=== PATIENT | female | born 1980 | race Caucasian/White ===

== ENCOUNTER 2025-01-04 06:46 | Emergency (ER) | payer OTHER ==
[~2025-01-04] VITALS: Ht 170.2 cm; Wt 99.8 kg
[2025-01-04] MEDS ORDERED: ONDANSETRON HCL/PF 4 MG/2 ML VIAL ONE ×2 (07:06→10:36)
[2025-01-04] MEDS: IV NS 0.9% 1,000 ML BAG IV ONE (07:06)
[2025-01-04] MEDS: ONDANSETRON HCL/PF 4 MG/2 ML VIAL IVP ONE (07:06)
[2025-01-04] MEDS: KETOROLAC TROMETHAMINE 15 MG/ML VIAL IV ONE ×2 (07:30→10:43)
[2025-01-04] MEDS: FENTANYL PF 100MCG/2ML AMPUL IV ONE ×2 (07:30→10:43)
[2025-01-04] MEDS ORDERED: KETOROLAC TROMETHAMINE 15 MG/ML VIAL ONE ×2 (07:32→10:36)
[2025-01-04] MEDS ORDERED: FENTANYL PF 100MCG/2ML AMPUL ONE ×2 (07:33→10:36)
[2025-01-04 07:56] LABS: PLATELET COUNT (AUTO) 303 K/uL (150-450); RED BLOOD CELL COUNT(AUTO) 4.46 MIL/uL (4.0-5.2); RED CELL DISTRIBUTION WIDTH 14.3 % (11.5-15.0); WHITE BLOOD COUNT (AUTO) 17.7 K/uL (4.3-11.0)
[2025-01-04 08:07] LABS: CALCIUM, SERUM 8.9 mg/dL (8.5-10.1); CREATININE 1.1 mg/dL (0.6-1.3); SODIUM SERUM 139.0 mmol/L (136-145); UREA NITROGEN, BLOOD 18.0 mg/dL (7-18)
[2025-01-04 08:12] LABS: ASPARTATE AMINOTRANSFERASE 13.0 U/L (15-37); TOTAL PROTEIN, SERUM 7.7 g/dL (6.4-8.2)
[2025-01-04 08:59] LABS: PREGNANCY TEST URINE QUAL NEGATIVE (NEGATIVE)
[2025-01-04 09:00] LABS: APPEARANCE,URINE CLEAR (CLEAR); BLOOD, URINE 3+ Ery/uL (NEGATIVE); LEUKOCYTE ESTERASE ,URINE NEGATIVE (NEGATIVE); NITRITE, URINE NEGATIVE (NEGATIVE); UGLUCOSE NEGATIVE (NEGATIVE)
[2025-01-04 09:29] LABS: ADD URINE CULTURE YES; SQUAMOUS EPITHELIAL CELL,UR Few /HPF (None Seen)
[2025-01-04] MEDS: CEFTRIAXONE 1 G in IV D5W 50 ML IV ONE (10:00)
[2025-01-04] MEDS ORDERED: ONDA4TAB5 PO (10:02)
[2025-01-04] MEDS ORDERED: CEPH-570 PO (10:02)
[2025-01-04] MEDS ORDERED: IBUP-1955 PO (10:02)
[2025-01-04] MEDS ORDERED: HYDR-4303 PO (10:02)
[2025-01-04] MEDS ORDERED: TAMS-12 PO (10:02)
[2025-01-04] MEDS ORDERED: CEFTRIAXONE 1GM BAG (ER ONLY) 50 ML IV ONE (10:24)
[2025-01-04] MEDS: ONDANSETRON HCL/PF 4 MG/2 ML VIAL IV ONE (10:43)
[2025-01-04 11:30] VITALS: BP 154/81; TEMP 98.3; O2SAT 99
== END 2025-01-04 11:30 | disposition home or self-care (01) ==
LOC: ER 06:49
DX: N13.2 Hydronephrosis with renal and ureteral calculous obstruction (principal); R30.0 Dysuria; R11.2 Nausea with vomiting, unspecified; Z90.49 Acquired absence of other specified parts of digestive tract; Z79.899 Other long term (current) drug therapy
CPT/HCPCS: 99285; 74176; 96365; 96375; 96361; 96376; 85025; 80048; 87086; 83690; 80076; 84703; 81001; 36415; J1885 ×2; J3010 ×2; J2405 ×2; J7030; J0696

== ENCOUNTER 2025-01-05 14:10 | Inpatient (IN) | payer OTHER ==
[~2025-01-05] VITALS: Ht 165.1 cm; Wt 103.9 kg
[2025-01-05] MEDS: IV NS 0.9% 1,000 ML BAG IV ONE (11:35)
[~2025-01-05 14:10] MED LIST: CEPH-570 PO; HYDR-4303 PO; IBUP-1955 PO; ONDA4TAB5 PO; TAMS-12 PO
[2025-01-05] MEDS ORDERED: ONDANSETRON HCL/PF 4 MG/2 ML VIAL ONE (14:27)
[2025-01-05] MEDS: ONDANSETRON HCL/PF 4 MG/2 ML VIAL IVP ONE (14:40)
[2025-01-05] MEDS: KETOROLAC TROMETHAMINE INJ 30 MG/ML VIAL IM ONE (15:00)
[2025-01-05 15:14] LABS: ASPARTATE AMINOTRANSFERASE 17.0 U/L (15-37); CREATININE 1.0 mg/dL (0.6-1.3); SODIUM SERUM 139.0 mmol/L (136-145); TOTAL PROTEIN, SERUM 7.9 g/dL (6.4-8.2); UREA NITROGEN, BLOOD 7.0 mg/dL (7-18)
[2025-01-05 15:29] LABS: CALCIUM, SERUM 8.6 mg/dL (8.5-10.1)
[2025-01-05 15:35] LABS: PLATELET COUNT (AUTO) 301 K/uL (150-450); RED BLOOD CELL COUNT(AUTO) 4.65 MIL/uL (4.0-5.2); RED CELL DISTRIBUTION WIDTH 14.3 % (11.5-15.0); WHITE BLOOD COUNT (AUTO) 13.5 K/uL (4.3-11.0)
[2025-01-05] MEDS ORDERED: KETOROLAC TROMETHAMINE INJ 30 MG/ML VIAL ONE (16:00)
[2025-01-05 16:04] LABS: APPEARANCE,URINE CLEAR (CLEAR); BLOOD, URINE 1+ Ery/uL (NEGATIVE); LEUKOCYTE ESTERASE ,URINE NEGATIVE (NEGATIVE); NITRITE, URINE NEGATIVE (NEGATIVE); UGLUCOSE NEGATIVE (NEGATIVE)
[2025-01-05 16:07] LABS: PREGNANCY TEST URINE QUAL NEGATIVE (NEGATIVE)
[2025-01-05 16:24] LABS: ADD URINE CULTURE NO
[2025-01-05] MEDS ORDERED: DOSING PER PHARMACY-CEFEPIME IVPB XX PRN (17:30)
[2025-01-05] MEDS ORDERED: TAMSULOSIN 0.4 MG CAP.SR.24H PO SCH (17:30)
[2025-01-05] MEDS: HYDROMORPHONE 1 MG/1 ML DISP.SYRIN IV ONE (18:15)
[2025-01-05] MEDS: ONDANSETRON HCL/PF 4 MG/2 ML VIAL IV STA (18:15)
[2025-01-05 21:03] VITALS: BP 153/102; TEMP 98.2; O2SAT 95
[2025-01-05] MEDS: IV NS 0.9% 1,000 ML IV SCH (21:40)
[2025-01-05] MEDS: HEPARIN SODIUM, PORCINE 5000 UNITS/1 ML VIAL SQ SCH (21:50)
[2025-01-05 22:00] VITALS: BP_SYST 165; BP_SYST 170; BP_DIAS 100; BP_DIAS 101; TEMP 98.1; O2SAT 98
[2025-01-05] MEDS: hydrALAZINE HCL IV 20 MG VIAL IV PRN (22:13)
[2025-01-05] MEDS ORDERED: CEFEPIME 1 GM VIAL ONE (22:25)
[2025-01-05] MEDS: CEFEPIME 1 GM in IV D5W 50 ML IV ONE (22:37)
[2025-01-06] MEDS: ONDANSETRON HCL/PF 4 MG/2 ML VIAL IVP PRN (01:51)
[2025-01-06] MEDS: MORPHINE SULFATE INJ 2 MG/ML DISP.SYRIN IV PRN (01:57)
[2025-01-06] MEDS: KETOROLAC TROMETHAMINE INJ 30 MG/ML VIAL IV PRN (05:46)
[2025-01-06 07:26] LABS: PLATELET COUNT (AUTO) 351 K/uL (150-450); RED BLOOD CELL COUNT(AUTO) 4.37 MIL/uL (4.0-5.2); RED CELL DISTRIBUTION WIDTH 14.0 % (11.5-15.0); WHITE BLOOD COUNT (AUTO) 13.9 K/uL (4.3-11.0)
[2025-01-06 07:30] VITALS: BP 148/100; TEMP 98.6; O2SAT 96
[2025-01-06 07:37] LABS: ASPARTATE AMINOTRANSFERASE 14.0 U/L (15-37); CALCIUM, SERUM 8.0 mg/dL (8.5-10.1); CREATININE 0.8 mg/dL (0.6-1.3); PHOSPHORUS 2.3 mg/dL (2.5-4.9); SODIUM SERUM 138.0 mmol/L (136-145); TOTAL PROTEIN, SERUM 7.1 g/dL (6.4-8.2); UREA NITROGEN, BLOOD 7.0 mg/dL (7-18)
[2025-01-06] MEDS: POTASSIUM CHLORIDE 20 MEQ TAB.PRT.SR PO ONE (09:16)
[2025-01-06] MEDS ORDERED: LOSA1TAB39 PO (09:32)
[2025-01-06] MEDS ORDERED: METO25TA20 PO (09:32)
[2025-01-06] MEDS ORDERED: AMLO-213 PO (09:32)
[2025-01-06] MEDS: K PHOS NEUTRAL 250 MG TABLET PO ONE (15:19)
[2025-01-06 16:13] VITALS: BP 150/96; TEMP 98.1; O2SAT 100
[2025-01-06 20:00] VITALS: BP 172/105; TEMP 98.4; O2SAT 98
[2025-01-06] MEDS: HYDROMORPHONE 1 MG/1 ML DISP.SYRIN IV PRN (20:24)
[2025-01-06 21:10] VITALS: BP 155/95
[2025-01-06] MEDS: CEFEPIME 1 GM in IV D5W 50 ML IV SCH (21:21)
[2025-01-07 03:10] VITALS: BP 156/90
[2025-01-07 07:47] LABS: PLATELET COUNT (AUTO) 376 K/uL (150-450); RED BLOOD CELL COUNT(AUTO) 4.65 MIL/uL (4.0-5.2); RED CELL DISTRIBUTION WIDTH 13.8 % (11.5-15.0); WHITE BLOOD COUNT (AUTO) 13.9 K/uL (4.3-11.0)
[2025-01-07 08:00] VITALS: BP 151/83; TEMP 97.9; O2SAT 95
[2025-01-07 08:29] LABS: CALCIUM, SERUM 8.8 mg/dL (8.5-10.1); CREATININE 0.7 mg/dL (0.6-1.3); PHOSPHORUS 2.3 mg/dL (2.5-4.9); SODIUM SERUM 135.0 mmol/L (136-145); UREA NITROGEN, BLOOD 8.0 mg/dL (7-18)
[2025-01-07] MEDS: POTASSIUM CHLORIDE 20 MEQ TAB.PRT.SR PO SCH (09:00)
[2025-01-07] MEDS: POTASSIUM CHLORIDE 20 MEQ TAB.PRT.SR PO ONE (10:00)
[2025-01-07 16:00] VITALS: BP 153/90; TEMP 99.1; O2SAT 98
[2025-01-07] MEDS: Sodium Phosphate 15 MMOL in IV NS 0.9% 245 ML IV SCH (17:17)
[2025-01-07 20:00] VITALS: BP 169/104; TEMP 98.1; O2SAT 96
[2025-01-07 21:44] VITALS: BP 155/85; TEMP 98.5; O2SAT 97
[2025-01-08] MEDS ORDERED: FENTANYL PF 100MCG/2ML AMPUL ONE (06:52)
[2025-01-08] MEDS ORDERED: SUCCINYLCHOLINE CHLORIDE 20 MG/ML VIAL ONE (06:53)
[2025-01-08] MEDS ORDERED: ROCURONIUM BROMIDE 50 MG/5 ML ONE (06:53)
[2025-01-08] MEDS ORDERED: ONDANSETRON HCL/PF 4 MG/2 ML VIAL IVP PRN (07:00)
[2025-01-08] MEDS ORDERED: MEPERIDINE HCL/PF 50 MG/ML DISP.SYRIN IV PRN (07:00)
[2025-01-08] MEDS ORDERED: METOCLOPRAMIDE HCL 10 MG/2 ML VIAL IV PRN (07:00)
[2025-01-08] MEDS: OXYBUTYNIN CHLORIDE ER 5 MG TAB PO SCH (09:07)
[2025-01-08] MEDS: HYDROCODONE/APAP 10/325MG TABLET PO PRN (12:12)
[2025-01-08 16:07] VITALS: BP 146/96; TEMP 98.8; O2SAT 98
[2025-01-08 20:00] VITALS: BP_SYST 155; BP_SYST 165; BP_DIAS 100; BP_DIAS 106; TEMP 99.1; O2SAT 98
[2025-01-08 20:35] VITALS: BP 155/100; TEMP 99.1; O2SAT 98
[2025-01-09] VITALS: BP 150/100
[2025-01-09 03:00] VITALS: BP 180/110
[2025-01-09] MEDS: ACETAMINOPHEN 325 MG TABLET PO PRN (03:00)
[2025-01-09 07:03] LABS: PLATELET COUNT (AUTO) 373 K/uL (150-450); RED BLOOD CELL COUNT(AUTO) 4.80 MIL/uL (4.0-5.2); RED CELL DISTRIBUTION WIDTH 13.7 % (11.5-15.0); WHITE BLOOD COUNT (AUTO) 16.6 K/uL (4.3-11.0)
[2025-01-09 07:11] LABS: CALCIUM, SERUM 8.4 mg/dL (8.5-10.1); CREATININE 0.7 mg/dL (0.6-1.3); PHOSPHORUS 2.3 mg/dL (2.5-4.9); SODIUM SERUM 135.0 mmol/L (136-145); UREA NITROGEN, BLOOD 9.0 mg/dL (7-18)
[2025-01-09 08:00] VITALS: BP 153/85; TEMP 98.2; O2SAT 96
[2025-01-09] MEDS ORDERED: TAMSULOSIN 0.4 MG CAP.SR.24H PO PRN (09:00)
[2025-01-09] MEDS: METOPROLOL TARTRATE 25 MG TABLET PO SCH (09:42)
[2025-01-09] MEDS: AMLODIPINE BESYLATE 10 MG TABLET PO SCH (09:42)
[2025-01-09] MEDS: POTASSIUM CHLORIDE 20 MEQ TAB.PRT.SR PO SCH (09:43)
[2025-01-09] MEDS: IV NS 0.9% 1,000 ML IV PRN (10:06)
[2025-01-09] MEDS: CEFEPIME 2 GM in IV D5W 100 ML IV SCH (10:07)
[2025-01-09] MEDS: Calcium Gluconate 1GM/10ML 9.3 MEQ in IV NS 0.9% 100 ML IV ONE (10:22)
[2025-01-09] MEDS: METOCLOPRAMIDE HCL 10 MG/2 ML VIAL IV SCH (11:48)
[2025-01-09] MEDS: NEUTRA PHOS 1 POWD.PACKET PO ONE (15:20)
[2025-01-09 16:00] VITALS: BP 134/92; TEMP 97.9; O2SAT 98
[2025-01-10 07:30] VITALS: BP 140/92; TEMP 99.1; O2SAT 100
[2025-01-10] MEDS ORDERED: POTASSIUM PHOSPHATE MM 15 MMOL in IV NS 0.9% 250 ML IV SCH (07:30)
[2025-01-10] MEDS: POTASSIUM PHOSPHATE MM 7.5 MMOL in IV NS 0.9% 100 ML IV SCH (08:11)
[2025-01-10] MEDS: HYDROCHLOROTHIAZIDE 25 MG TABLET PO SCH (08:13)
[2025-01-10] MEDS: LOSARTAN POTASSIUM 50 MG TABLET PO SCH (08:13)
[2025-01-10 09:35] LABS: PLATELET COUNT (AUTO) 370 K/uL (150-450); RED BLOOD CELL COUNT(AUTO) 4.73 MIL/uL (4.0-5.2); RED CELL DISTRIBUTION WIDTH 14.1 % (11.5-15.0); WHITE BLOOD COUNT (AUTO) 13.3 K/uL (4.3-11.0)
[2025-01-10 09:47] LABS: CALCIUM, SERUM 8.8 mg/dL (8.5-10.1); CREATININE 1.0 mg/dL (0.6-1.3); SODIUM SERUM 138.0 mmol/L (136-145); UREA NITROGEN, BLOOD 10.0 mg/dL (7-18)
[2025-01-10] MEDS: KETOROLAC TROMETHAMINE INJ 30 MG/ML VIAL IM PRN (15:53)
[2025-01-10 20:00] VITALS: BP 140/72; TEMP 98.1; O2SAT 96
[2025-01-10] MEDS: HYDROMORPHONE 1 MG/1 ML DISP.SYRIN IV ONE (23:38)
[2025-01-11] MEDS: HYDROMORPHONE 1 MG/1 ML DISP.SYRIN IV ONE (04:59)
[2025-01-11] MEDS ORDERED: MORPHINE SULFATE INJ 2 MG/ML DISP.SYRIN IV PRN (07:30)
[2025-01-11 08:00] VITALS: BP 154/101; TEMP 98.4; O2SAT 96
[2025-01-11 11:02] LABS: PLATELET COUNT (AUTO) 457 K/uL (150-450); RED BLOOD CELL COUNT(AUTO) 5.45 MIL/uL (4.0-5.2); RED CELL DISTRIBUTION WIDTH 14.0 % (11.5-15.0); WHITE BLOOD COUNT (AUTO) 21.5 K/uL (4.3-11.0)
[2025-01-11 11:39] LABS: CALCIUM, SERUM 8.9 mg/dL (8.5-10.1); CREATININE 0.7 mg/dL (0.6-1.3); SODIUM SERUM 136.0 mmol/L (136-145); UREA NITROGEN, BLOOD 12.0 mg/dL (7-18)
[2025-01-11] MEDS: LEVOFLOXACIN 500 MG /D5W 100ML 500 MG in PREMIX 1 EA IV SCH (12:05)
[2025-01-11] MEDS: HYDROMORPHONE 1 MG/1 ML DISP.SYRIN IV PRN (12:47)
[2025-01-11 16:00] VITALS: BP 128/57; TEMP 98.4; O2SAT 97
[2025-01-11 16:06] VITALS: BP 143/75
[2025-01-11] MEDS: POTASSIUM CHLORIDE 20 MEQ TAB.PRT.SR PO ONE (16:18)
== END 2025-01-11 19:00 | disposition short-term general hospital (02) | DRG 661 ==
LOC: ER 14:16 → MED 21:17
PROVIDERS: ADMIT Internal Medicine; ATTEND Internal Medicine
PROC: 0T768DZ Dilation of Right Ureter with Intraluminal Device, Via Natural or Artificial Opening Endoscopic (ICD-10-PCS; principal; 2025-01-08 07:00)
DX: N13.2 Hydronephrosis with renal and ureteral calculous obstruction (principal); D72.829 Elevated white blood cell count, unspecified; I10 Essential (primary) hypertension; Z87.442 Personal history of urinary calculi; Z90.49 Acquired absence of other specified parts of digestive tract; R11.2 Nausea with vomiting, unspecified; T36.1X5A Adverse effect of cephalosporins and other beta-lactam antibiotics, initial encounter; Y92.230 Patient room in hospital as the place of occurrence of the external cause
CPT/HCPCS: 36415; 74018; 80048-TC; 80053-TC; 80076-TC; 81001; 82310-TC; 83690-TC; 83735-TC; 84100-TC; 84132-TC; 84702-TC; 84703-TC; 85025-TC; 86850-TC; A4216; A4217; A4223; A9563; C1769; C2617; G0378; J0330; J0360; J0612; J0690; J0692; J1100; J1171; J1644; J1885; J1956; J2270; J2405; J2704; J2765; J3010; J3490; J7030; J7042; J7050; J7060; Q0163